=== PATIENT | female | born 1975 | race Caucasian/White ===

== ENCOUNTER 2017-08-28 10:19 | Inpatient (IN) | payer MEDICAID, OTHER ==
[2017-08-28] MEDS ORDERED: Acetaminophen 325 MG Tab PO PRN (10:47)
[2017-08-28] MEDS ORDERED: Acetaminophen 650 MG Supp RECTAL PRN (10:48)
[2017-08-28] MEDS ORDERED: Naloxone 0.4 MG/ML SDV IV PRN (10:49)
[2017-08-28] MEDS ORDERED: HYDROmorphone/Normal Saline 15 MG/30 ML PCA IV PRN (10:49)
[2017-08-28] MEDS: Dextrose 5%-Lactated Ringers 1,000 ML IV SCH ×2 (11:30→21:22)
[2017-08-28] MEDS: Pantoprazole 40 MG Vial IV SCH (12:00)
[2017-08-28] MEDS: Ciprofloxacin 500 MG Tab PO SCH ×2 (13:36→22:03)
[2017-08-28] MEDS: Ondansetron 4 MG/2 ML SDV IVPUSH PRN ×2 (14:26→20:51)
[2017-08-28] MEDS ORDERED: MVI, Adult with Vitamin K 10 ML, Thiamine 100 MG, Magnesium Sulfate 2 GM, Folic Acid 1 ... IV ONE ×5 (16:30)
[2017-08-29] MEDS: Ondansetron 4 MG/2 ML SDV IVPUSH PRN ×2 (02:18→10:40)
[2017-08-29] MEDS: Dextrose 5%-Lactated Ringers 1,000 ML IV SCH ×2 (03:57→10:40)
[2017-08-29] MEDS ORDERED: Meropenem 500 MG SDV ONE (06:42)
[2017-08-29] MEDS ORDERED: Bupivacaine 0.5%/EPINEPHrine 1:200,000 50 ML MDV ONE (06:42)
[2017-08-29] MEDS ORDERED: Scopolamine 1.5 MG Transdermal Patch TRDERM PRN (07:17)
--- NOTE | 2017-08-29 08:58 | PN ---
DATE OF SERVICE: 08/29/2017 SUBJECTIVE: Radha is n.p.o. She will be having surgery today. She remains to be nauseated. REVIEW OF SYSTEMS: Remainder of review of systems negative for any pertinent positives and negatives. OBJECTIVE: GENERAL: Radha is a pleasant 42-year-old female. VITAL SIGNS: TPR 95.6, 46, 16, and blood pressure 103/70. HEENT: Negative. NECK: Supple. HEART: Regular rate and rhythm. LUNGS: Clear. ABDOMEN: Tenderness remains in the upper abdomen. Left upper quadrant has the most pain. EXTREMITIES: Without peripheral edema. SCDs are on. ASSESSMENT: Partial small bowel obstruction. PLAN: 1. Rx scopolamine patch. Check and change every 72 hours. 2. Check EKG. 3. TSH and blood already drawn. 4. We will evaluate p.r.n. or in a.m. 5. Orders to be written postoperatively. Suzie Davis PA-C /[id number]
[2017-08-29] MEDS: Ciprofloxacin 500 MG Tab PO SCH (09:27)
[2017-08-29] MEDS: SCOPOLAMINE PATCH CHECK TOP SCH (09:27)
[2017-08-29] MEDS ORDERED: Dexamethasone 4 MG/ML SDV ONE (10:51)
[2017-08-29] MEDS ORDERED: Rocuronium 50 MG/5 ML Vial ONE (10:51)
[2017-08-29] MEDS ORDERED: Glycopyrrolate 0.2 MG/ML 5 ML MDV ONE (10:51)
[2017-08-29] MEDS ORDERED: Ondansetron 4 MG/2 ML SDV ONE (10:51)
[2017-08-29] MEDS ORDERED: fentaNYL 250 MCG/5 ML SDV ONE ×2 (10:51→15:22)
[2017-08-29] MEDS ORDERED: Neostigmine Methylsulfate 1 MG/ML 5 ML Syringe ONE (10:51)
[2017-08-29] MEDS ORDERED: Propofol 200 MG/20 ML SDV ONE (10:51)
[2017-08-29] MEDS ORDERED: Succinylcholine 200 MG/10 ML MDV ONE (10:51)
[2017-08-29] MEDS ORDERED: cefOXitin 2 GM in Sodium Chloride 0.9% 50 ML IV ONE (11:00)
[2017-08-29] MEDS ORDERED: Ketamine 500 MG/5 ML MDV IV SCH (11:00)
[2017-08-29] MEDS ORDERED: Ropivacaine 55 ML, Dexamethasone 8 MG, EPINEPHrine 0.4 MG, Sodium Chloride 0.9% 22.6 ML NERVRT SCH ×4 (11:00)
[2017-08-29] MEDS ORDERED: Lidocaine 0.4%/D5W 2 GM/500 ML BAG IV SCH (11:00)
[2017-08-29] MEDS ORDERED: Lidocaine 2% 100 MG/5 ML Syringe IVPUSH ONE (11:00)
[2017-08-29] MEDS: Pantoprazole 40 MG Vial IV SCH (13:50)
[2017-08-29] MEDS ORDERED: Ondansetron 4 MG/2 ML SDV IVPUSH ONE (16:43)
[2017-08-29] MEDS ORDERED: Ondansetron 4 MG/2 ML SDV IVPUSH PRN (16:44)
[2017-08-29] MEDS ORDERED: HYDROmorphone/Normal Saline 15 MG/30 ML PCA IV PRN (16:50)
[2017-08-29] MEDS ORDERED: hydrOXYzine HCl 100 MG/2 ML SDV IM ONE (16:56)
[2017-08-29] MEDS ORDERED: Dextrose 5%-Lactated Ringers 1,000 ML IV SCH (17:15)
[2017-08-29] MEDS ORDERED: MVI, Adult with Vitamin K 10 ML, Thiamine 100 MG, Chromium/Copper/Mang/Selen/Zn 1 ML in... IV SCH ×4 (18:00)
[2017-08-29] MEDS ORDERED: diphenhydrAMINE 50 MG/ML SDV IVPUSH PRN (18:00)
[2017-08-29] MEDS ORDERED: Labetalol 20 MG/4 ML Syringe IVPUSH PRN (18:00)
[2017-08-29] MEDS ORDERED: Metoclopramide 10 MG/2 ML SDV IVPUSH PRN (18:00)
[2017-08-29] MEDS ORDERED: hydrOXYzine HCl 100 MG/2 ML SDV IM PRN (18:00)
[2017-08-29] MEDS: Levothyroxine 100 MCG Tab PO SCH (18:14)
[2017-08-29] MEDS: Acetaminophen Soln 650 MG/20.3 ML UD Cup PO SCH (19:19)
[2017-08-29] MEDS: Heparin Sodium 5,000 Units/ML Vial SUBCUT SCH (19:20)
[2017-08-29] MEDS: cefOXitin 2 GM in Sodium Chloride 0.9% 50 ML IV SCH (19:24)
[2017-08-29] MEDS: Gabapentin 250 MG/5 ML Solution ML 470 ML Bottle PO SCH (20:57)
[2017-08-30] MEDS: Acetaminophen Soln 650 MG/20.3 ML UD Cup PO SCH ×5 (01:03→23:54)
[2017-08-30] MEDS: cefOXitin 2 GM in Sodium Chloride 0.9% 50 ML IV SCH ×2 (01:04→08:17)
[2017-08-30] MEDS ORDERED: Iohexol 647 MG/ML 50 ML SDV PO STA (04:04)
[2017-08-30] MEDS ORDERED: Ondansetron 4 MG Tab.DIS PO PRN (08:06)
[2017-08-30] MEDS: Celecoxib 200 MG Cap PO SCH (08:11)
[2017-08-30] MEDS: Levothyroxine 100 MCG Tab PO SCH (08:11)
[2017-08-30] MEDS: SCOPOLAMINE PATCH CHECK TOP SCH (08:12)
[2017-08-30] MEDS: Heparin Sodium 5,000 Units/ML Vial SUBCUT SCH ×2 (08:12→20:00)
[2017-08-30] MEDS ORDERED: Dextrose 5%-Lactated Ringers 1,000 ML IV SCH (08:15)
[2017-08-30] MEDS: Gabapentin 250 MG/5 ML Solution ML 470 ML Bottle PO SCH ×3 (08:15→21:43)
--- NOTE | 2017-08-30 10:27 | CR ---
UGI wo KUB HISTORY: eval R -Y GBP FINDINGS: After administration of oral contrast, upright views were obtained. Post operative changes gastric bypass. Surgical drains in place. No evidence for leak. Contrast passes freely into proximal small bowel loops. There are some redundant loops horizontally in the left upper quadrant. There is s ome mild small bowel distention which is likely ileus. IMPRESSION: No evidence for leak or obstruction.
[2017-08-30] MEDS: HYDROmorphone 2 MG Tab PO PRN ×3 (11:29→21:43)
[2017-08-30] MEDS: Pantoprazole 40 MG Delayed-Release Granules 1 Packet PO SCH (13:46)
--- NOTE | 2017-08-30 14:27 | PCM.PN ---
- General Info Date of Service: 08/30/17 Admission Dx/Problem (Free Text): Partial SBO Subjective Update: Patient is doing okay, she is extremely exhausted. She slept through the night. She is up and ambulating and is not experiencing pain or nausea. Functional Status: Reports: Pain Controlled, Tolerating Diet, Ambulating, Urinating, Incentive Spirometry - Review of Systems General: Reports: No Symptoms HEENT: Reports: No Symptoms Pulmonary: Reports: No Symptoms Cardiovascular: Reports: No Symptoms Gastrointestinal: Reports: No Symptoms Genitourinary: Reports: No Symptoms Musculoskeletal: Reports: No Symptoms Skin: Reports: No Symptoms Neurological: Reports: No Symptoms Psychiatric: Reports: No Symptoms Systems Review Comment:: Remainder of ROS is negative for any pertinent negatives and positives. - Patient Data Vitals - Most Recent: Last Vital Signs Temp 97.8 F 08/30/17 11:32 Pulse 41 L 08/30/17 11:32 Resp 16 08/30/17 11:32 BP 113/69 08/30/17 11:32 Pulse Ox 95 08/30/17 11:32 Weight - Most Recent: 241 lb 4.8 oz I&O - Last 24 Hours: Intake & Output 08/29/17 08/30/17 08/30/17 22:59 06:59 14:59 Intake Total 651 1228 1490 Output Total 900 200 300 Balance -249 1028 1190 Med Orders - Current: Current Medications Acetaminophen (Tylenol) 650 mg PO Q6H [facility] Last Admin: 08/30/17 11:29 Dose: 650 mg Celecoxib (Celebrex) 200 mg PO DAILY@0800 [facility] Last Admin: 08/30/17 08:11 Dose: 200 mg Cyanocobalamin (Vitamin B12) 1,000 mcg IM ONETIME ONE Stop: 08/31/17 09:01 Gabapentin (Neurontin) 300 mg PO TID [facility] Last Admin: 08/30/17 13:45 Dose: 300 mg Heparin Sodium (Porcine) (Heparin Sodium) 5,000 units SUBCUT Q12H [facility] Last Admin: 08/30/17 08:12 Dose: 5,000 units Hydromorphone HCl (Dilaudid) 2 - 4 mg PO Q4H PRN PRN Reason: Pain Last Admin: 08/30/17 11:29 Dose: 2 mg Hydroxyzine HCl (Vistaril) 75 - 100 mg IM Q4H PRN PRN Reason: pain Levothyroxine Sodium (Synthroid) 200 mcg PO ACBREAKFAST [facility] Last Admin: 08/30/17 08:11 Dose: 200 mcg Miscellaneous Information (Remove Patch) 1 ea TRDERM ONETIME ONE Stop: 08/31/17 10:01 Scopolamine Patch (Check) 1 each TOP DAILY [facility] Stop: 08/31/17 09:01 Last Admin: 08/30/17 08:12 Dose: Not Given Ondansetron HCl (Zofran Odt) 4 mg PO Q4H PRN PRN Reason: Nausea/Vomiting Pantoprazole Sodium (Protonix Granules) 40 mg PO Q24H [facility] Last Admin: 08/30/17 13:46 Dose: 40 mg Scopolamine (Transderm-Scop) 1.5 mg TRDERM Q72H PRN PRN Reason: Nausea Stop: 08/31/17 10:00 Last Admin: 08/29/17 09:25 Dose: 1.5 mg Discontinued Medications Acetaminophen (Tylenol) 325 mg PO Q4H PRN PRN Reason: FEVER/ANALGESIA Acetaminophen (Tylenol) 650 mg RECTAL Q4H PRN PRN Reason: FEVER/ANALGESIA Bupivacaine HCl/Epinephrine Bitart (Marcaine 0.5%/Epinephrine 1:200,000) Confirm Administered Dose 50 ml .ROUTE .STK-MED ONE Stop: 08/29/17 06:43 Last Admin: 08/29/17 16:13 Dose: 25 ml Ciprofloxacin (Ciprofloxacin Hcl) 500 mg PO BID [facility] Last Admin: 08/29/17 09:27 Dose: Not Given Ropivacaine 55 ml/Dexamethasone 8 mg/Epinephrine HCl 0.4 mg/ Sodium Chloride 22.6 ml 0 ml NERVRT ASDIRECTED [facility] Last Admin: 08/29/17 15:13 Dose: 80 syringe Dexamethasone (Dexamethasone) Confirm Administered Dose 4 mg .ROUTE .STK-MED ONE Stop: 08/29/17 10:52 Diphenhydramine HCl (Benadryl) 25 - 50 mg IVPUSH Q4H PRN PRN Reason: ITCHING Fentanyl (Sublimaze) Confirm Administered Dose 250 mcg .ROUTE .STK-MED ONE Stop: 08/29/17 10:52 Fentanyl (Sublimaze) Confirm Administered Dose 250 mcg .ROUTE .STK-MED ONE Stop: 08/29/17 15:23 Glycopyrrolate (Robinul) Confirm Administered Dose 1 mg .ROUTE .STK-MED ONE Stop: 08/29/17 10:52 Hydromorphone HCl (Dilaudid Programming Manager 15 Mg In Ns 30 Ml) 0 mg IV ASDIRECTED PRN; Protocol PRN Reason: CLAY DIGGER PAIN CONTROL Last Admin: 08/28/17 11:06 Dose: 15 mg Hydromorphone HCl (Dilaudid Programming Manager 15 Mg In Ns 30 Ml) 0 mg IV ASDIRECTED PRN; Protocol PRN Reason: Pain Hydroxyzine HCl (Vistaril) 100 mg IM ONETIME ONE Stop: 08/29/17 16:57 Last Admin: 08/29/17 17:01 Dose: 100 mg Dextrose/Lactated Ringer's (Dextrose 5%-Lactated Ringers) 1,000 mls @ 150 mls/ hr IV ASDIRECTED [facility] Last Admin: 08/29/17 10:40 Dose: 150 mls/hr Cefoxitin Sodium 2 gm/ Sodium (Chloride) 50 mls @ 100 mls/hr IV ONETIME ONE Stop: 08/29/17 11:29 Last Admin: 08/29/17 14:26 Dose: 100 mls/hr Lidocaine HCl/Dextrose (Lidocaine 2 Gm/D5w 500 Ml) 2 gm in 500 mls @ 30 mls/hr IV .[id number] [facility] Stop: 08/30/17 03:39 Last Admin: 08/29/17 18:15 Dose: 2 mg/min, 30 mls/hr Ketamine HCl 100 mg/ Sodium (Chloride) 100 mls @ 32.83 mls/hr IV ASDIRECTED [facility] Multivitamins/Minerals 10 ml/Thiamine HCl 100 mg/ Magnesium Sulfate 2 gm/ Folic Acid 1 mg / Lactated Ringer's 1,015.2 mls @ 200 mls/hr IV ONETIME ONE Stop: 08/28/17 21:34 Last Admin: 08/28/17 16:19 Dose: 200 mls/hr Dextrose/Lactated Ringer's (Dextrose 5%-Lactated Ringers) 1,000 mls @ 175 mls/ hr IV ASDIRECTED [facility] Last Admin: 08/30/17 01:04 Dose: 175 mls/hr Multivitamins/Minerals 10 ml/Thiamine HCl 100 mg/ Chromium/Copper/Manganese/ Seleni/Zn 1 ml/ Dextrose/Lactated Ringer's 1,012 mls @ 175 mls/hr IV DAILY@ 1600 [facility] Last Admin: 08/29/17 20:09 Dose: 175 mls/hr Cefoxitin Sodium 2 gm/ Sodium (Chloride) 50 mls @ 100 mls/hr IV Q6H [facility] Stop: 08/30/17 14:29 Last Admin: 08/30/17 08:17 Dose: 100 mls/hr Dextrose/Lactated Ringer's (Dextrose 5%-Lactated Ringers) 1,000 mls @ 100 mls/ hr IV ASDIRECTED [facility] Iohexol (Omnipaque-300) 50 ml PO .ASDIRECTED [facility] Stop: 08/30/17 04:05 Last Admin: 08/30/17 04:19 Dose: 50 ml Ketamine HCl (Ketalar) 26 mg IV ASDIRECTED [facility] Labetalol HCl (Normodyne) 5 - 15 mg IVPUSH Q1H PRN PRN Reason: SBP over 160 OR DBP over 95 Lidocaine HCl (Xylocaine 2%) 110 mg IVPUSH ONETIME ONE Stop: 08/29/17 11:01 Last Admin: 08/29/17 18:15 Dose: Not Given Meropenem (Merrem) Confirm Administered Dose 500 mg .ROUTE .STK-MED ONE Stop: 08/29/17 06:43 Last Admin: 08/29/17 15:22 Dose: 500 mg Metoclopramide HCl (Reglan) 10 mg IVPUSH Q6H PRN PRN Reason: NAUSEA NOT CONTROL BY ZOFRAN Naloxone HCl (Narcan) 0.1 mg IV ASDIRECTED PRN PRN Reason: decreased respiratory rate Neostigmine Methylsulfate (Neostigmine) Confirm Administered Dose 5 mg .ROUTE .STK-MED ONE Stop: 08/29/17 10:52 Ondansetron HCl (Zofran) 4 mg IVPUSH Q4H PRN PRN Reason: NAUSEA Last Admin: 08/29/17 10:40 Dose: 4 mg Ondansetron HCl (Zofran) Confirm Administered Dose 4 mg .ROUTE .STK-MED ONE Stop: 08/29/17 10:52 Ondansetron HCl (Zofran) 4 mg IVPUSH ONETIME ONE Stop: 08/29/17 16:44 Last Admin: 08/29/17 16:59 Dose: 4 mg Ondansetron HCl (Zofran) 4 mg IVPUSH Q4H PRN PRN Reason: NAUSEA Pantoprazole Sodium (Protonix Iv) 40 mg IV Q24H [facility] Last Admin: 08/29/17 13:50 Dose: 40 mg Propofol (Diprivan 20 Ml) Confirm Administered Dose 200 mg .ROUTE .STK-MED ONE Stop: 08/29/17 10:52 Rocuronium [place] (Zemuron) Confirm Administered Dose 50 mg .ROUTE .STK-MED ONE Stop: 08/29/17 10:52 Succinylcholine Chloride (Quelicin) Confirm Administered Dose 200 mg .ROUTE .STK -MED ONE Stop: 08/29/17 10:52 - Exam General: Alert, Oriented HEENT: Pupils Equal, Mucous Membr. Moist/[place] Neck: Supple Lungs: Clear to Auscultation, Normal Respiratory Effort Cardiovascular: Regular Rate, Regular Rhythm Extremities: Normal Range of Motion Skin: Warm, Dry, Intact Wound/Incisions: Healing Well Neurological: No New Focal Deficit Psy/Mental Status: Alert, Normal Affect, Normal Mood - Problem List Review Problem List Initiated/Reviewed/Updated: Yes - Assessment Assessment:: Status post small bowel resection. - Plan Plan:: 1. May Shower 2. Full liquid diet 3. Dextrose 5% Lactated Ringers 4. Hydromorhpone 2-4 PO Q4H prn for pain 5. Odansetron 4mg PO Q4h prn for nausea 6.Conver to Saline Lock Routine 7. Revaluate prn or in am
[2017-08-30] MEDS ORDERED: Levothyroxine 100 MCG Tab PO ONE (16:00)
[2017-08-31] MEDS: Acetaminophen Soln 650 MG/20.3 ML UD Cup PO SCH ×2 (06:28→11:11)
[2017-08-31] MEDS: HYDROmorphone 2 MG Tab PO PRN ×2 (06:30→16:17)
[2017-08-31] MEDS ORDERED: Levothyroxine 100 MCG Tab PO SCH (07:30)
[2017-08-31] MEDS: Celecoxib 200 MG Cap PO SCH (08:20)
[2017-08-31] MEDS: SCOPOLAMINE PATCH CHECK TOP SCH (08:21)
[2017-08-31] MEDS: Heparin Sodium 5,000 Units/ML Vial SUBCUT SCH (08:21)
[2017-08-31] MEDS: Gabapentin 250 MG/5 ML Solution ML 470 ML Bottle PO SCH ×2 (08:46→13:48)
[2017-08-31] MEDS ORDERED: Cyanocobalamin (Vitamin B12) 1,000 MCG/ML SDV IM ONE (09:00)
[2017-08-31] MEDS ORDERED: Magnesium Hydroxide 400 MG/5 ML Susp 30 ML Cup PO SCH (10:00)
[2017-08-31] MEDS ORDERED: Bisacodyl 5 MG Tab PO SCH (10:00)
[2017-08-31] MEDS: Pantoprazole 40 MG Delayed-Release Granules 1 Packet PO SCH (11:11)
[2017-08-31 14:37] VITALS: BP 126/78
--- NOTE | 2017-09-01 10:09 | PN ---
DATE OF SERVICE: 08/31/2017 The patient has been afebrile with stable vital signs. Complaining of some gas-type pains this morning. We will give her some milk of magnesia and Dulcolax oral tablets scheduled until bowels are moving. Otherwise, oral intake has been satisfactory. She will be getting shower. Pain control in general appears to be reasonably good. We did check a TSH and it was suddenly 2. She states that for a period of time prior to coming to the hospital, she was not taking much of her Synthroid. So, we will keep the present dose going, and she would likely be rechecked again in perhaps a month to make sure that it is coming down. As she may be ready for discharge home tomorrow if she is able to get the GI tract fully functional. Duong Kolb MD /[id number]
--- NOTE | 2017-09-02 09:21 | DISCH ---
FINAL DIAGNOSES: Partial small bowel obstruction at the junction of the Mine limb with: 1. Jejunojejunostomy. 2. 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 SECONDARY DIAGNOSES: 1. Bariatric surgery status. 2. Hypothyroidism, treated. 3. Chronic back pain. OPERATIVE PROCEDURE: Exploratory laparotomy with lysis of adhesions and: 1. Revision of jejunojejunostomy component of Mine-en-Y gastric bypass. 2. Separate small-bowel resection, removing the elongated biliopancreatic limb stump. This was done on 08/29/2017. SUMMARY: This is a 42-year-old status post previous Mine-en-Y gastric bypass, presenting with partial small-bowel type symptoms. The patient underwent a limited open laparotomy on 08/29/2017 and was found to have a tightly angulated Mine limb as it joined the jejunojejunostomy. This was compounded by a biliopancreatic limb which is fairly elongated and with its mesenteric attachments distorting that anastomosis posteriorly and towards the left of biliopancreatic limb stump was resected, which freed up that anastomosis. The Mine limb was then divided flush with the jejunojejunostomy, and a new jejunojejunostomy was then created somewhat more distally, thus revising the anatomy such that some additional weight loss would be likely. Postoperatively, no major problems were noted. At the time of discharge, she was tolerating a step 3 diet, i.e. a soft solid diet, and we will be restarting her usual medications plus Dilaudid 2 to 4 mg p.o. q.4 hours p.r.n. pain, #40. She will be following up with Suzie Davis at [facility] on September 10. Prior to admission, the patient was noted to have a UTI with E. coli and was on Cipro and will be instructed to finish off that antibiotic course following discharge.
--- NOTE | 2017-09-03 12:50 | OR ---
DATE OF PROCEDURE: 08/29/2017 PREOPERATIVE DIAGNOSIS: Partial small bowel obstruction. POSTOPERATIVE DIAGNOSES: 1. Partial small bowel obstruction at the junction of the Mine limb with jejunojejunostomy. 2. Elongated biliary pancreatic limb stump causing distortion of the small bowel orientation. OPERATIVE PROCEDURE: Exploratory laparotomy with lysis of adhesions; 1. Revision of the jejunojejunostomy, Mien-en-Y gastric bypass (35047). 2. Separate resection of small bowel biliopancreatic limb stump (79397). ANESTHESIA: General. ASSISTANTS: Suzie Davis PA-C, and PAS. Rossy INDICATION FOR PROCEDURE: This is a 42-year-old status post previous Mine-en-Y gastric bypass, presenting with CT findings suggestive of partial small bowel obstruction. Plan is to proceed with an open laparotomy as a degree of small-bowel distention on a CT scan such that the trocar placement might put the patient at significant risk for bowel injury and a large amount of spill of distal contents. The plan will be to proceed with a laparotomy as noted above with identification of problems with lysis of adhesions, resection of bowel, possible revision of jejunojejunostomy with a Mine-en-Y gastric bypass, were all reviewed, and the patient wishes to proceed. DETAILS OF PROCEDURE: The patient was taken to the operating room and placed in a supine position. After general endotracheal anesthesia was induced, a Hernández catheter was inserted (this was removed at the end of the procedure), and the abdomen was prepped and draped. A midline incision from the umbilicus roughly a handsbreadth toward the xiphoid was made and carried down through the skin and subcutaneous tissue and peritoneal cavity. Upon entering the peritoneal cavity, bilateral subcostal transverse plane blocks were placed with injection of the needle just underneath the peritoneum on each side and injection of a standard solution bilaterally. The abdomen was then inspected. At this point, the 2 areas appeared to be problematic, one was where the small bowel entered the jejunojejunostomy, this appeared to be quite stenotic, and after lysis of adhesions, there it was quite narrowed. This appeared to be the primary source of the preoperative bowel obstruction. After that had been freed up, it was also noted that the patient had a quite elongated biliopancreatic limb stump. The mesenteric attachments of this were then causing that to be pulled posteriorly and leftward causing a significant distortion of the course of the small bowel at that level initially. Then, the mesentery of the elongated of the biliopancreatic limb stump was divided with a WALDO mesenteric load and that section of the bowel divided more or less flushed with the jejunojejunostomy with a WALDO oakes load. The stricture at the Mine limb junction with the jejunojejunostomy appeared to be more fixed. Given this, the small bowel was divided at that level, and the jejunojejunostomy then revised somewhat more distally. The latter would be also helpful in terms of the patient losing some increased weight at that level. Then, the [id number] enteroenterostomy was accomplished with internal firing of the Endo-WALDO 60 mm stapler followed by 45 mm internal firing of the common opening closed transversely with the WALDO stapler. The anastomosis was reinforced with 3-0 Vicryl stitch, and the mesentery was then closed with a 2-0 silk stitch providing some more permanency. The final limb length were as follows; the Mine limb was at 140 cm, biliopancreatic limb 400 cm, and the common limb at 210 cm. At that point, no further problems noted. The abdomen was irrigated with antibiotic-containing saline solution. The midline fascia was approximated with #2 Vicryl stitch. This fascia was also anesthetized with 0.5% Marcaine with epinephrine, and the incision then closed with 2 layers of 3-0 Vicryl stitch deep and mary for the skin. Dressing was applied. The patient was taken to the recovery room in satisfactory condition. Physician project construction assistant manager, Suzie Davis, played an essential role in assisting in this case, helping to position the patient, retract structures as needed as well as suturing and cutting sutures as indicated. Her presence improved the patient's safety and decreased the operative time. Duong Kolb MD /[id number]
== END 2017-08-31 16:30 | disposition home or self-care (01) | DRG 336 ==
LOC: JP.2SS 10:19
PROVIDERS: ADMIT Surgery; ATTEND Surgery
PROC: 0DB90ZX Excision of Duodenum, Open Approach, Diagnostic (ICD-10-PCS; principal; 2017-08-29)
PROC: 0DNA0ZZ Release Jejunum, Open Approach (ICD-10-PCS; 2017-08-29)
PROC: 0DBA0ZX Excision of Jejunum, Open Approach, Diagnostic (ICD-10-PCS; 2017-08-29)
PROC: 0DNW0ZZ Release Peritoneum, Open Approach (ICD-10-PCS; 2017-08-29)
PROC: 3E0T3BZ Introduction of Anesthetic Agent into Peripheral Nerves and Plexi, Percutaneous Approach (ICD-10-PCS; 2017-08-29)
DX: K56.690 Other partial intestinal obstruction (principal); K90.49 Malabsorption due to intolerance, not elsewhere classified; N39.0 Urinary tract infection, site not specified; D50.9 Iron deficiency anemia, unspecified; E53.9 Vitamin B deficiency, unspecified; E03.9 Hypothyroidism, unspecified; G89.29 Other chronic pain; M54.9 Dorsalgia, unspecified; Z98.84 Bariatric surgery status; B96.20 Unspecified Escherichia coli [E. coli] as the cause of diseases classified elsewhere; Z79.899 Other long term (current) drug therapy; K56.51 Intestinal adhesions [bands], with partial obstruction
CPT/HCPCS: 36415; 74240; 74240-26; 80053; 81025; 82306; 82607; 82728; 82746; 83735; 84100; 84425; 84443; 85027; 88305; 88307; 93005; 94762; A9270-GY; C9113; J0171; J0330; J0694; J1100; J1170; J1644; J2001; J2185; J2405; J2704; J2710; J2795; J3010; J3410; J3411; J3420; J3475; J3490; J7030; J7042; J7050; J7120; Q9967

== ENCOUNTER 2018-07-10 07:16 | Inpatient (IN) | payer OTHER ==
[~2018-07-10 07:16] MED LIST: Acetaminophen 500 MG Tab PO ONE; Bupivacaine 0.5%/EPINEPHrine 1:200,000 50 ML MDV ONE; Meropenem 500 MG SDV ONE; Scopolamine 1.5 MG Transdermal Patch TRDERM SCH
[2018-07-10] MEDS ORDERED: Dextrose 5%-Lactated Ringers 1,000 ML IV SCH (07:45)
[2018-07-10] MEDS ORDERED: Ropivacaine 46 ML, Dexamethasone 8 MG, EPINEPHrine 0.4 MG, Sodium Chloride 0.9% 31.6 ML NERVRT SCH ×4 (08:45)
[2018-07-10] MEDS ORDERED: Ketamine 500 MG/5 ML MDV IV SCH (08:45)
[2018-07-10] MEDS ORDERED: Ketamine 50 MG in Sodium Chloride 0.9% 49.5 ML IV SCH (08:45)
[2018-07-10] MEDS ORDERED: Neostigmine Methylsulfate 1 MG/ML 5 ML Syringe ONE (08:56)
[2018-07-10] MEDS ORDERED: fentaNYL 250 MCG/5 ML SDV ONE (08:56)
[2018-07-10] MEDS ORDERED: Dexamethasone 4 MG/ML SDV ONE (08:56)
[2018-07-10] MEDS ORDERED: Ondansetron 4 MG/2 ML SDV ONE (08:56)
[2018-07-10] MEDS ORDERED: Glycopyrrolate 0.2 MG/ML 5 ML MDV ONE (08:56)
[2018-07-10] MEDS ORDERED: Propofol 200 MG/20 ML SDV ONE (08:56)
[2018-07-10] MEDS ORDERED: Rocuronium 50 MG/5 ML Vial ONE (08:56)
[2018-07-10] MEDS ORDERED: HYDROmorphone/Normal Saline 15 MG/30 ML PCA IV PRN (10:08)
[2018-07-10] MEDS ORDERED: Naloxone 0.4 MG/ML SDV IVPUSH PRN (10:08)
[2018-07-10] MEDS: ceFAZolin 2 GM in Premix Bag 1 BAG IV ONE ×2 (10:12→12:51)
[2018-07-10] MEDS ORDERED: fentaNYL 100 MCG/2 ML SDV ONE ×3 (11:01→11:32)
[2018-07-10] MEDS ORDERED: hydrOXYzine HCl 100 MG/2 ML SDV IM ONE (12:17)
[2018-07-10] MEDS ORDERED: fentaNYL 100 MCG/2 ML SDV IVPUSH ONE (12:24)
[2018-07-10] MEDS ORDERED: hydrOXYzine HCl 100 MG/2 ML SDV IM PRN (13:26)
[2018-07-10] MEDS: Dextrose 5%-Lactated Ringers 1,000 ML IV SCH ×2 (13:35→19:39)
[2018-07-10] MEDS: Cyclobenzaprine 10 MG Tab PO PRN ×2 (13:39→22:34)
[2018-07-10] MEDS: SCOPOLAMINE PATCH CHECK TOP SCH (13:49)
[2018-07-10] MEDS: Acetaminophen 500 MG Tab PO SCH ×2 (15:23→19:25)
[2018-07-10] MEDS: Magnesium Sulfate/Water 2 GM in Premix Bag 1 BAG IV SCH ×2 (15:26→22:27)
[2018-07-10] MEDS: ceFAZolin 2 GM in Premix Bag 1 BAG IV SCH (18:30)
[2018-07-11] MEDS: Dextrose 5%-Lactated Ringers 1,000 ML IV SCH (01:39)
[2018-07-11] MEDS: ceFAZolin 2 GM in Premix Bag 1 BAG IV SCH ×3 (02:20→17:42)
[2018-07-11] MEDS: Acetaminophen 500 MG Tab PO SCH ×4 (02:22→20:34)
[2018-07-11] MEDS: Magnesium Sulfate/Water 2 GM in Premix Bag 1 BAG IV SCH ×4 (05:21→22:09)
[2018-07-11] MEDS ORDERED: Levothyroxine 25 MCG Tab PO SCH (07:30)
[2018-07-11] MEDS: Celecoxib 200 MG Cap PO SCH (07:40)
[2018-07-11] MEDS: Levothyroxine 100 MCG Tab PO SCH (07:41)
[2018-07-11] MEDS ORDERED: Dextrose 5%-Lactated Ringers 1,000 ML IV SCH (07:48)
[2018-07-11] MEDS ORDERED: Ondansetron 4 MG Tab.DIS PO PRN (07:50)
[2018-07-11] MEDS: SCOPOLAMINE PATCH CHECK TOP SCH (08:56)
[2018-07-11] MEDS: Cyclobenzaprine 10 MG Tab PO PRN ×2 (08:56→15:31)
[2018-07-11] MEDS ORDERED: Sennosides 8.6 MG Tab PO SCH (09:00)
[2018-07-11] MEDS ORDERED: Sodium Ferric Gluconate Cmplex 250 MG in Sodium Chloride 0.9% 100 ML IV SCH (09:00)
--- NOTE | 2018-07-11 11:00 | PN ---
DATE OF SERVICE: 07/11/2018 SUBJECTIVE: Radha is postoperative day #1. She has been up ambulating 4 times, using her AUDIO DIRECTOR. Hernández catheter is in place. Oral intake 780. Urinary output is 1265. REVIEW OF SYSTEMS: Remainder of review of systems negative for any pertinent positives and negatives. OBJECTIVE: GENERAL: Radha iRco is a pleasant 43-year-old female. She is alert, orientated, sitting up in the chair. VITAL SIGNS: TPR is 98.3, 49, 18, blood pressure is 118/71. HEENT: Negative. NECK: Supple. HEART: Regular rate and rhythm. LUNGS: Clear. ABDOMEN: Dressings dry and intact. Abdominal binder is on. EXTREMITIES: Without peripheral edema. ASSESSMENT: Open repair of recurrent incarcerated incisional hernia with mesh, placement of Vicryl mesh for recurrent incarcerated incisional hernia and extensive intraabdominal adhesions. Date of surgery 07/10/2018. Surgeon, Duong Kolb MD. PLAN: 1. Decrease IV to 100 mL per hour. 2. Discontinue Hernández catheter. 3. Step 3 gastric bypass diet. 4. Dressing off, may shower. 5. Increase Synthroid to 225 mcg daily. 6. Home medications were restarted and senna 8.6 mg p.o. daily. 7. We will evaluate p.r.n. or in a.m. Suzie Davis PA-C /[id number]
[2018-07-11] MEDS ORDERED: Simethicone 80 MG Tab.Chew PO PRN (13:05)
[2018-07-11] MEDS: Bisacodyl 10 MG Supp RECTAL PRN ×2 (13:23→20:52)
[2018-07-11] MEDS: Ondansetron 4 MG/2 ML SDV IVPUSH PRN ×2 (14:12→20:51)
[2018-07-11] MEDS: HYDROmorphone 2 MG Tab PO PRN ×2 (17:34→23:45)
[2018-07-12] MEDS: ceFAZolin 2 GM in Premix Bag 1 BAG IV SCH (01:43)
[2018-07-12] MEDS: Acetaminophen 500 MG Tab PO SCH ×2 (01:43→07:40)
[2018-07-12] MEDS: Cyclobenzaprine 10 MG Tab PO PRN ×2 (01:43→07:33)
[2018-07-12] MEDS: Magnesium Sulfate/Water 2 GM in Premix Bag 1 BAG IV SCH (03:24)
[2018-07-12] MEDS: HYDROmorphone 2 MG Tab PO PRN (05:03)
[2018-07-12] MEDS ORDERED: Levothyroxine 100 MCG Tab PO SCH (07:30)
[2018-07-12] MEDS: Celecoxib 200 MG Cap PO SCH (07:38)
[2018-07-12] MEDS: Levothyroxine 100 MCG Tab PO SCH (07:39)
[2018-07-12 07:40] VITALS: BP 102/54
--- NOTE | 2018-07-14 14:46 | DISCH ---
FINAL DIAGNOSES: 1. Recurrent incarcerated incisional hernia. 2. Extensive intraabdominal adhesions. 3. History of gastric bypass surgery. 4. History of hypothyroidism. OPERATIVE PROCEDURE: This was done on 07/10/2018, open repair of recurrent incarcerated incisional hernia along with repair of incarcerated umbilical hernia with mesh and placement of Vicryl mesh to limit recurrent adhesion formation. SUMMARY: This is a 43-year-old presenting with recurrent incisional hernia, which appeared to be fairly broad-based, and at the time of admission, the patient underwent the exploratory laparotomy. She had quite a bit in the way of adhesions, which were taken down, and quite large broad-based recurrent incisional hernia was repaired, along with smaller umbilical hernia, which was done with mesh. Postoperatively, she did well in terms of pain control, considering the tightness of the repair, and is presently tolerating diet and has moved her bowels and plan will be to discharge home at this time. She will be instructed not to lift, push or pull more than 10 pounds for 8 weeks postoperatively. Otherwise, begin regular diet. She should be on her usual medications plus Dilaudid 2 to 4 mg p.o. q.4 hours p.r.n. pain plus Tylenol as needed. Followup will be with Suzie Davis, at [facility] in [place] on 07/22/2018 at 11:00 a.m.
--- NOTE | 2018-07-15 07:48 | OR ---
DATE OF PROCEDURE: 07/10/2018 PREOPERATIVE DIAGNOSIS: Recurrent incisional hernia. POSTOPERATIVE DIAGNOSES: 1. Recurrent incarcerated incisional hernia. 2. Incarcerated umbilical hernia. 3. Extensive intraabdominal adhesions. OPERATIVE PROCEDURES: Exploratory laparotomy with: 1. Repair of recurrent incarcerated incisional hernia with mesh (99068, 68650). 2. Repair of incarcerated umbilical hernia with mesh (08686). 3. Placement of Vicryl mesh to displace pelvic and abdominal wall from underlying viscera to limit recurrent adhesion formation (61433). ANESTHESIA: General. REGISTRATION REP: Suzie Davis PA-C INDICATIONS FOR PROCEDURE: This is a 43-year-old presenting with a broad-based recurrent incisional hernia located from the umbilicus upward (with open repair of recurrent hernia with mesh). Potential risks including bleeding, infection, injury to underlying viscera, problems with recurrence of the mesh becoming infected over time, as well as possibility of cardiopulmonary, septic, or hemorrhagic complications leading to were discussed, and the patient wishes to proceed. DETAILS OF PROCEDURE: The patient was taken to the operating room, and after general endotracheal anesthesia was induced, a Hernández catheter was inserted, and the abdomen prepped and draped. Upper midline incision from just above the umbilicus to roughly 3 fingers below the xiphoid was made and carried down through the full thickness of the abdominal wall and entering the peritoneal cavity through the hernia sac. The patient was noted to have quite extensive adhesions. Some of these involved some of the large and small bowel, these were taken down without incident, and the remaining attachments were to the omentum. The hernia sac was then dissected free circumferentially down to the level of the fascia. The patient was also noted to have a separate umbilical hernia which had some incarcerated omentum within it as well. This was reduced as well with division of the incarcerated component away from the peritoneal sac. Once these were in place, and there was a good clearance of the fascia in all directions, a Ventrio ST hernia patch measuring 19.5 cm x 25.6 cm was selected. This was then lined on its polypropylene side on its circumference at roughly 5 cm intervals with 2-0 Vicryl sutures to allow pulling of the fascia up in an area well away from the fascial edges. This was soaked in antibiotic-containing saline solution. Small stab wounds were then placed where the suture would be pulled up through the abdominal wall. The upper half of the sutures were then initially placed, and the mesh then pulled into an intraabdominal location. The Vicryl mesh was then placed underneath the new mesh, as well as extending down into the pelvic area to limit recurrent adhesion formation between the abdominopelvic sidewalls and the underlying viscera. Once this was in place, the remaining sutures were pulled up through the abdominal wall. The sutures were then all tied into the underlying shelf of the mesh and circumferentially additionally affixed with titanium tacking screws to the abdominal wall. At that point, no further problems were noted. The area was irrigated, as it had been earlier, with a combination of meropenem and Zyvox antibiotic solution. At that point, the fascial closure over this was accomplished with a running #2 Vicryl stitch. This was quite tight. Prior to this closure, bilateral transversus abdominis plane blocks were placed to aid in postoperative pain control, and once this was completed, in terms of closure, the subcutaneous tissue was approximated with 2 layers of 3-0 and 4-0 Vicryl stitch deep and mary for the skin. Dressing was applied. The patient was taken to the recovery room in satisfactory condition. There were no evident complications. Physician assistant paralegal, Suzie Davis, played an essential role in assisting in this case, helping to position the patient, retract structures as needed, suturing, and mary when indicated. Her presence improved patient safety and decreased operative time. Duong Kolb MD /[id number]
== END 2018-07-12 09:30 | disposition home or self-care (01) | DRG 336 ==
LOC: JP.SDS 07:16 → JP.SDSSCHI 07:16 → EDSTATUS 10:00 → JP.MS 12:00
PROVIDERS: ADMIT Surgery; ATTEND Surgery
PROC: 0WUF0JZ Supplement Abdominal Wall with Synthetic Substitute, Open Approach (ICD-10-PCS; principal; 2018-07-10)
PROC: 0WUF0JZ Supplement Abdominal Wall with Synthetic Substitute, Open Approach (ICD-10-PCS; 2018-07-10)
PROC: 3E0M05Z Introduction of Adhesion Barrier into Peritoneal Cavity, Open Approach (ICD-10-PCS; 2018-07-10)
PROC: 0DNU0ZZ Release Omentum, Open Approach (ICD-10-PCS; 2018-07-10)
PROC: 0DN80ZZ Release Small Intestine, Open Approach (ICD-10-PCS; 2018-07-10)
PROC: 0DNE0ZZ Release Large Intestine, Open Approach (ICD-10-PCS; 2018-07-10)
DX: K43.0 Incisional hernia with obstruction, without gangrene (principal); K91.2 Postsurgical malabsorption, not elsewhere classified; K66.0 Peritoneal adhesions (postprocedural) (postinfection); E03.9 Hypothyroidism, unspecified; K42.0 Umbilical hernia with obstruction, without gangrene; K21.9 Gastro-esophageal reflux disease without esophagitis; E53.8 Deficiency of other specified B group vitamins; M54.5 Low back pain; D50.9 Iron deficiency anemia, unspecified; E61.0 Copper deficiency; E50.9 Vitamin A deficiency, unspecified; E60 Dietary zinc deficiency; Z90.49 Acquired absence of other specified parts of digestive tract; Z79.899 Other long term (current) drug therapy; Z79.890 Hormone replacement therapy; Z97.5 Presence of (intrauterine) contraceptive device; Z98.84 Bariatric surgery status; Z88.8 Allergy status to other drugs, medicaments and biological substances
CPT/HCPCS: 36415; 81025; 84443; 88302; 94762; A9270-GY; C1781; J0171; J0690; J1100; J1170; J2020; J2185; J2405; J2704; J2710; J2795; J2916; J3010; J3410; J3475; J3490; J7030; J7042; J7050

== ENCOUNTER 2018-11-13 08:30 | Inpatient (IN) | payer OTHER ==
[~2018-11-13 08:30] MED LIST changes: -Acetaminophen 500 MG Tab PO ONE; -Bupivacaine 0.5%/EPINEPHrine 1:200,000 50 ML MDV ONE; +Ketamine 50 MG in Sodium Chloride 0.9% 49.5 ML IV SCH; +Ketamine 500 MG/5 ML MDV IV SCH; +Lidocaine 2% 100 MG/5 ML Syringe IVPUSH SCH; -Scopolamine 1.5 MG Transdermal Patch TRDERM SCH
[2018-11-13] MEDS ORDERED: Acetaminophen 500 MG Tab PO ONE (09:15)
[2018-11-13] MEDS ORDERED: Scopolamine 1.5 MG Transdermal Patch TOP ONE (09:15)
[2018-11-13] MEDS ORDERED: Celecoxib 200 MG Cap PO ONE (09:15)
[2018-11-13] MEDS ORDERED: Dextrose 5%-Lactated Ringers 1,000 ML IV SCH (10:00)
[2018-11-13] MEDS ORDERED: fentaNYL 250 MCG/5 ML SDV ONE (10:04)
[2018-11-13] MEDS ORDERED: Succinylcholine 200 MG/10 ML MDV ONE (10:05)
[2018-11-13] MEDS ORDERED: Rocuronium 50 MG/5 ML Vial ONE (10:05)
[2018-11-13] MEDS ORDERED: Glycopyrrolate 0.2 MG/ML 5 ML MDV ONE (10:05)
[2018-11-13] MEDS ORDERED: Ondansetron 4 MG/2 ML SDV ONE (10:05)
[2018-11-13] MEDS ORDERED: Neostigmine Methylsulfate 1 MG/ML 5 ML Syringe ONE (10:05)
[2018-11-13] MEDS ORDERED: Dexamethasone 4 MG/ML SDV ONE (10:05)
[2018-11-13] MEDS ORDERED: Propofol 200 MG/20 ML SDV ONE (10:05)
[2018-11-13] MEDS ORDERED: cefOXitin 2 GM in Sodium Chloride 0.9% 50 ML IV ONE (10:30)
[2018-11-13] MEDS ORDERED: Lactated Ringers 1,000 ML ONE (12:07)
[2018-11-13] MEDS ORDERED: fentaNYL 100 MCG/2 ML SDV ONE (13:18)
[2018-11-13] MEDS ORDERED: hydrOXYzine HCl 100 MG/2 ML SDV IM ONE (14:17)
[2018-11-13] MEDS ORDERED: fentaNYL 100 MCG/2 ML SDV IVPUSH ONE (14:17)
[2018-11-13] MEDS: Lidocaine 0.4%/D5W 2 GM/500 ML BAG IV SCH (15:00)
[2018-11-13] MEDS ORDERED: Ondansetron 4 MG/2 ML SDV IVPUSH PRN (15:43)
[2018-11-13] MEDS ORDERED: hydrOXYzine HCl 100 MG/2 ML SDV IM PRN (15:43)
[2018-11-13] MEDS ORDERED: HYDROmorphone 0.5 MG/0.5 ML Syringe IVPUSH PRN (15:43)
[2018-11-13] MEDS ORDERED: Labetalol 20 MG/4 ML Syringe IVPUSH PRN (15:43)
[2018-11-13] MEDS ORDERED: diphenhydrAMINE 50 MG/ML SDV IVPUSH PRN (15:43)
[2018-11-13] MEDS ORDERED: Acetaminophen Soln 650 MG/20.3 ML UD Cup PO SCH (15:43)
[2018-11-13] MEDS ORDERED: Metoclopramide 10 MG/2 ML SDV IVPUSH PRN (15:43)
[2018-11-13] MEDS ORDERED: HYDROmorphone 1 MG/ML Syringe IV PRN (15:43)
[2018-11-13] MEDS: Acetaminophen 325 MG Tab PO SCH ×2 (16:22→22:05)
[2018-11-13] MEDS: cefOXitin 2 GM in Sodium Chloride 0.9% 50 ML IV SCH ×2 (16:26→22:03)
[2018-11-13] MEDS: MVI, Adult with Vitamin K 10 ML, Thiamine 200 MG, Chromium/Copper/Mang/Selen/Zn 1 ML in... IV SCH ×4 (16:27)
[2018-11-13] MEDS ORDERED: Pantoprazole 40 MG Vial IVPUSH SCH (17:00)
[2018-11-13] MEDS: Dextrose 5%-Lactated Ringers 1,000 ML IV SCH (22:02)
[2018-11-14] MEDS ORDERED: Iopamidol 510 MG/ML 50 ML SDV PO STA (03:41)
[2018-11-14] MEDS: Dextrose 5%-Lactated Ringers 1,000 ML IV SCH ×2 (04:10→10:05)
[2018-11-14] MEDS: Acetaminophen 325 MG Tab PO SCH (04:17)
[2018-11-14] MEDS: cefOXitin 2 GM in Sodium Chloride 0.9% 50 ML IV SCH ×4 (04:21→23:22)
--- NOTE | 2018-11-14 04:29 | CRLCR ---
INDICATION: Mine and why revision with small-bowel release TECHNIQUE: Abdomen modified upper GI COMPARISON: CT scan pelvis 11/12/2018 FINDINGS: Oral contrast is identified within small bowel loops in the ascending colon. No evidence for bowel obstruction or extravasation of contrast. IMPRESSION: Oral contrast is identified in small bowel loops and the ascending colon. No evidence for small bowel obstruction or leakage of contrast. Dictated by Vinny Esqueda MD @ Nov 14 2018 4:26AM Signed by Dr. Vinny Esqueda @ Nov 14 2018 4:27AM
[2018-11-14] MEDS ORDERED: Acetaminophen 325 MG Tab PO PRN (07:17)
[2018-11-14] MEDS ORDERED: Ondansetron 4 MG Tab.DIS PO PRN (07:18)
[2018-11-14] MEDS: Celecoxib 200 MG Cap PO SCH (07:47)
[2018-11-14] MEDS: Magnesium Sulfate/Water 2 GM in Premix Bag 1 BAG IV SCH ×3 (07:47→19:36)
[2018-11-14] MEDS ORDERED: Sodium Ferric Gluconate Cmplex 250 MG in Sodium Chloride 0.9% 100 ML IV ONE (10:00)
[2018-11-14] MEDS: SCOPOLAMINE PATCH CHECK TOP SCH (10:03)
[2018-11-14] MEDS: Lidocaine 0.4%/D5W 2 GM/500 ML BAG IV SCH (10:03)
[2018-11-14] MEDS: Cyclobenzaprine 10 MG Tab PO PRN ×2 (10:18→17:24)
[2018-11-14] MEDS: Acetaminophen/HYDROcodone 325-5 MG Tab PO PRN ×4 (10:18→22:28)
--- NOTE | 2018-11-14 10:24 | PN ---
DATE OF SERVICE: 11/14/2018 SUBJECTIVE: Radha is postoperative day #1. She states her pain has been controlled. She has been up ambulating. Vital signs have been stable. Afebrile. IV intake 3100. Hernández catheter output 1375. She was quite dehydrated on admission. Upper GI was normal. REVIEW OF SYSTEMS: Remainder of review of systems negative for any pertinent positives and negatives. OBJECTIVE: GENERAL: Radha Rico is a pleasant 43-year-old female. VITAL SIGNS: TPR 97.9, 61, 18, blood pressure 109/59. HEENT: Negative. NECK: Supple. HEART: Regular rate and rhythm. LUNGS: Clear. ABDOMEN: Dressing dry and intact. Abdominal binder is on. EXTREMITIES: Without peripheral edema. SCDs are on. ASSESSMENT: 1. Exploratory laparotomy with lysis of extensive adhesions. a. Small-bowel resection, distal small bowel. b. Revision of the jejunojejunostomy component of the Mine-en-Y gastric bypass. c. Placement of Interceed mesh for a postop diagnosis of distal partial small bowel obstruction with hemorrhagic small bowel mesentery, partial small bowel at the jejunojejunostomy and extensive intraabdominal adhesions. Date of surgery: 11/13/2018. Surgeon: Duong Kolb MD. 2. Low magnesium of 1.4. PLAN: 1. Magnesium 2 g IV q.6 hours x72 hours. 2. Discontinue Hernández catheter. 3. Step 3 gastric bypass diet. 4. Decrease IV rate to 100 mL per hour. 5. Discontinue IV Dilaudid. 6. [place] 5/325 mg 1 to 2 every 4 hours p.r.n. pain. 7. Cyclobenzaprine/Flexeril 10 mg q.6 hours p.r.n. muscle spasms. 8. Good pulmonary toilet. 9. We will evaluate p.r.n. or in a.m. Suzie Davis PA-C /[id number]
[2018-11-14] MEDS: Pantoprazole 40 MG Tab.CR PO SCH (11:17)
[2018-11-14] MEDS: MVI, Adult with Vitamin K 10 ML, Thiamine 200 MG, Chromium/Copper/Mang/Selen/Zn 1 ML in... IV SCH ×4 (17:24)
[2018-11-15] MEDS: Acetaminophen/HYDROcodone 325-5 MG Tab PO PRN ×2 (02:39→07:01)
[2018-11-15] MEDS: Magnesium Sulfate/Water 2 GM in Premix Bag 1 BAG IV SCH ×4 (02:39→19:25)
[2018-11-15] MEDS: Dextrose 5%-Lactated Ringers 1,000 ML IV SCH (02:40)
[2018-11-15] MEDS: cefOXitin 2 GM in Sodium Chloride 0.9% 50 ML IV SCH ×2 (05:13→12:17)
[2018-11-15] MEDS: Pantoprazole 40 MG Tab.CR PO SCH (07:47)
[2018-11-15] MEDS: Celecoxib 200 MG Cap PO SCH (07:48)
[2018-11-15] MEDS ORDERED: Sodium Chloride 0.9% 10 ML Syringe IV PRN (08:18)
[2018-11-15] MEDS ORDERED: oxyCODONE 5 MG Tab PO PRN (08:19)
[2018-11-15] MEDS ORDERED: Cyanocobalamin (Vitamin B12) 1,000 MCG/ML SDV IM ONE (09:00)
[2018-11-15] MEDS: SCOPOLAMINE PATCH CHECK TOP SCH (09:07)
[2018-11-15] MEDS ORDERED: SODIUM CHLORIDE 0.9% IV ONE (10:00)
[2018-11-15] MEDS ORDERED: SODIUM FERRIC GLUCONATE CMPLEX IV ONE (10:00)
[2018-11-15] MEDS: Acetaminophen 500 MG Tab PO SCH ×3 (11:11→22:23)
[2018-11-15] MEDS: oxyCODONE 5 MG Tab PO PRN ×4 (11:13→23:21)
[2018-11-16] MEDS: oxyCODONE 5 MG Tab PO PRN ×2 (03:17→07:28)
[2018-11-16] MEDS: Acetaminophen 500 MG Tab PO SCH ×2 (03:17→09:27)
[2018-11-16] MEDS: Celecoxib 200 MG Cap PO SCH (07:29)
[2018-11-16] MEDS: Pantoprazole 40 MG Tab.CR PO SCH (07:29)
[2018-11-16 07:35] VITALS: BP 107/71
[2018-11-16] MEDS ORDERED: Magnesium Hydroxide 400 MG/5 ML Susp 30 ML Cup PO ONE (08:11)
--- NOTE | 2018-11-19 13:25 | DISCH ---
FINAL DIAGNOSES: 1. Distal partial small bowel obstruction with hemorrhage into the small bowel mesentery. 2. Partial small bowel obstruction at jejunojejunostomy. 3. Extensive intraabdominal adhesions. 4. Status post previous Mine-en-Y gastric bypass. 5. Treated hypothyroidism. OPERATIVE PROCEDURES: Done on 11/13: Exploratory laparotomy with lysis of extensive adhesions and: 1. Small bowel resection (distal small bowel). 2. Revision of jejunojejunostomy component of Mine-en-Y gastric bypass. 3. Placement of Interceed mesh to limit recurrent adhesion formation between pelvic and abdominal wall and underlying viscera. SUMMARY: This is a 43-year-old female presenting with recurrent partial small bowel obstruction. On the day of admission, the patient underwent exploratory laparotomy. This would require revision of some of her lower abdominal mesh. The patient was noted to have 2 sites of obstruction within the distal small bowel. The patient had an area of marked edema and some old-appearing hemorrhage within the mesentery adjacent to it. This was resected. The patient also had a markedly dilated jejunojejunostomy suggestive of this being involvement of some volvulus or partial obstruction leading to the laxity of the small bowel and probably some angulation at the anastomosis. The distal small area was resected and jejunojejunostomy performed and Mine-en-Y gastric bypass was revised as outlined in the operative report. Interceed mesh was placed to limit recurrent adhesion formation. Postoperatively, pain control was somewhat of a difficulty, but presently she appears to be doing well with a combination of scheduled Tylenol 1 g q.i.d.; oxycodone 5 to 10 mg q.4 hours p.r.n. pain, #50; Celebrex 200 mg p.o. daily #30, and we started her also on 2 doses of milk of magnesia and she will, otherwise, be continuing her usual home medications. She will be instructed to stay off heavy lifting for 6 weeks postoperatively and follow up with Suzie Davis at [facility] on 11/25/2018 at 10:30 a.m.
--- NOTE | 2018-11-19 15:19 | PN ---
DATE OF SERVICE: 11/15/2018 The patient has been afebrile with stable vital signs. The main problem is inadequate pain control at this point, and [place] is being given at a rate that she would exceed her 4 g of Tylenol dose daily limit, and we will therefore switch over to some scheduled oral Tylenol and then discontinue the [place] and go with oxycodone 5 mg 1 to 2 tablets q.4 hours p.r.n. pain. If we get pain controlled adequately orally today, we will let her go home tomorrow. Duong Kolb MD /[id number]
--- NOTE | 2018-11-20 08:31 | OR ---
DATE OF PROCEDURE: 11/13/2018 SURGEON: Duong Kolb MD PREOPERATIVE DIAGNOSIS: Partial small bowel obstruction. POSTOPERATIVE DIAGNOSES: 1. Partial small bowel obstruction at: a. Distal Mine limb associated with hemorrhage into small bowel mesentery. b. Additional point of obstruction that likely is site of chronic intussusception of small bowel at jejunojejunostomy. 2. Extensive intraabdominal adhesions. OPERATIVE PROCEDURE: Exploratory laparotomy with lysis of extensive adhesions with: 1. Small bowel resection (34121). 2. Revision of jejunojejunostomy component of Mine-en-Y gastric bypass (99877). 3. Placement of Interceed mesh to limit recurrent adhesion formation (83620). ANESTHESIA: General. INDICATION FOR PROCEDURE: This is a 43-year-old female presenting with partial small-bowel obstruction, status post previous Mine-en-Y gastric bypass. The plan is to proceed with limited exploratory laparotomy with lysis of adhesions and/or small bowel resection. Additionally, if the jejunojejunostomy component of Imne-en-Y gastric bypass is involved, that may need to be revised concurrently. Potential risks of the procedure including bleeding, infection, leaks from various GI tract closures, possible recurrence of the bowel obstruction over time were all reviewed, and the patient wishes to proceed. DETAILS OF PROCEDURE: The patient was taken to the operating room and after general endotracheal anesthesia was induced, a Hernández catheter was inserted, and the abdomen was prepped and draped. A midline incision from the umbilicus roughly a handsbreadth toward the xiphoid was made and carried down through the skin, subcutaneous tissue, fascia, and the peritoneal cavity. There were fairly extensive adhesions between the omentum and a segment of small bowel and the pelvic and abdominal wall. These were then taken down primarily with electrocautery, along with some sharp dissection near the bowel surface. General exploration then revealed 2 areas of concern. In the distal common limb, there was an area of bowel that was markedly edematous and dilated. This was associated with some old- appearing hemorrhage within the mesentery, confirming this was likely secondary to significant pathology. The jejunojejunostomy component of Mine-en-Y gastric bypass was also quite dilated and appeared to be involved in chronic intussusception that likely would be the Mine limb prolapsing into the anastomosis, causing this whole area to be markedly dilated and edematous. Decision was made to proceed with resection of the former site and then revision of the jejunojejunostomy to complete the correction of the patient's obstructive problems. Initially, the distal small bowel was divided proximal and distal to the area of concern with the WALDO mary, as was the underlying mesentery, and then specimen delivered from the field. [id number]-bn-oaut enteroenterostomy was accomplished with an internal firing of the Endo- WALDO 60-mm stapler, and the common opening closed transversely with the same stapler. Angles of anastomosis and mesenteric defect approximated with some 3-0 Vicryl stitch. Attention was taken to the jejunojejunostomy. The Mine limb at this point was divided more or less flush with the jejunojejunostomy using the linear WALDO stapler. Both sides appeared to have adequate blood supply. Small amount of the Mine limb was then resected, so that we would not have intersecting staple lines at the secondary anastomosis, this with WALDO stapler as well, and the anastomosis was then completed roughly 30 cm distal to the original jejunojejunostomy, creating a new revised jejunojejunostomy and [id number] enteroenterostomy with sequence of stapled 60-mm linear mary. The angles of anastomosis were approximated with 3-0 Vicryl stitch. There was a significant mesenteric defect, which was closed with a 2-0 silk stitch to provide some more in the way of permanency. At this point, both anastomoses were reinforced with fibrin sealant. The omentum was not satisfactory to get down toward the pelvis. Given this, 2 Interceed meshes were then placed, beginning down in the pelvis and up toward the abdominal wall to displace those surfaces from the surrounding. The midline fascia was then approximated with #2 Vicryl stitch, the subcutaneous tissue with 2 layers of 3-0 Vicryl stitch, and the skin with mary. The patient had received bilateral transversus abdominis plane blocks, and the incision was anesthetized with some 0.5% Marcaine. The patient was taken to the recovery room in satisfactory condition. There were no evident complications. Physician security assistant, Suzie Davis PA-C, played an essential role in assisting in this case, helping to position the patient, retract structures as indicated, as well as suturing and cutting sutures when indicated and applying mary. Her presence improved the patient's safety and decreased the operative time. Duong Kolb MD /[id number]
== END 2018-11-16 10:25 | disposition home or self-care (01) | DRG 328 ==
LOC: EDSTATUS 08:30 → JP.SDSSCHI 09:00 → JP.SDS 09:00 → JP.MS 14:30
PROVIDERS: ADMIT Surgery; ATTEND Surgery
PROC: 0D160ZA Bypass Stomach to Jejunum, Open Approach (ICD-10-PCS; principal; 2018-11-13)
PROC: 0DN80ZZ Release Small Intestine, Open Approach (ICD-10-PCS; 2018-11-13)
PROC: 0WUF0JZ Supplement Abdominal Wall with Synthetic Substitute, Open Approach (ICD-10-PCS; 2018-11-13)
PROC: 0DB80ZZ Excision of Small Intestine, Open Approach (ICD-10-PCS; 2018-11-13)
DX: K56.51 Intestinal adhesions [bands], with partial obstruction (principal); E53.8 Deficiency of other specified B group vitamins; E53.9 Vitamin B deficiency, unspecified; E55.9 Vitamin D deficiency, unspecified; E86.0 Dehydration; E03.9 Hypothyroidism, unspecified; E83.42 Hypomagnesemia; Z98.84 Bariatric surgery status; Z90.49 Acquired absence of other specified parts of digestive tract; Z98.890 Other specified postprocedural states
CPT/HCPCS: 36415; 74240; 80053; 81025; 83735; 83880; 84100; 85025; 88307; 94762; A9270-GY; C9113; J0171; J0330; J0694; J1100; J1170; J2001; J2020; J2185; J2405; J2704; J2710; J2795; J2916; J3010; J3410; J3411; J3420; J3475; J3490; J7030; J7042; J7050; J7120; Q9966

== ENCOUNTER 2018-11-25 15:50 | Inpatient (IN) | payer OTHER ==
[2018-11-25] MEDS ORDERED: Dextrose 5%-Lactated Ringers 1,000 ML IV SCH ×2 (16:45→22:00)
[2018-11-25] MEDS ORDERED: Lidocaine 0.4%/D5W 2 GM/500 ML BAG IV SCH (17:00)
[2018-11-25] MEDS ORDERED: Ketamine 500 MG/5 ML MDV IV SCH (17:00)
[2018-11-25] MEDS ORDERED: Ketamine 50 MG in Sodium Chloride 0.9% 49.5 ML IV SCH (17:00)
[2018-11-25] MEDS ORDERED: Lidocaine 2% 100 MG/5 ML Syringe IVPUSH SCH (17:00)
[2018-11-25] MEDS ORDERED: fentaNYL 250 MCG/5 ML SDV ONE (17:09)
[2018-11-25] MEDS ORDERED: Midazolam 1 MG/ML 2 ML SDV ONE (17:09)
[2018-11-25] MEDS ORDERED: Ondansetron 4 MG/2 ML SDV ONE (17:10)
[2018-11-25] MEDS ORDERED: Rocuronium 50 MG/5 ML Vial ONE (17:10)
[2018-11-25] MEDS ORDERED: Succinylcholine 200 MG/10 ML MDV ONE (17:10)
[2018-11-25] MEDS ORDERED: Glycopyrrolate 0.2 MG/ML 5 ML MDV ONE (17:10)
[2018-11-25] MEDS ORDERED: Dexamethasone 4 MG/ML SDV ONE (17:10)
[2018-11-25] MEDS ORDERED: Propofol 200 MG/20 ML SDV ONE (17:10)
[2018-11-25] MEDS ORDERED: Neostigmine Methylsulfate 1 MG/ML 5 ML Syringe ONE (17:10)
[2018-11-25] MEDS ORDERED: Meropenem 500 MG SDV ONE (17:41)
[2018-11-25] MEDS: Ampicillin/Sulbactam Na 3 GM in Sodium Chloride 0.9% 100 ML IV ONE ×2 (17:45→20:02)
[2018-11-25] MEDS ORDERED: fentaNYL 100 MCG/2 ML SDV ONE (18:14)
[2018-11-25] MEDS ORDERED: Lactated Ringers 1,000 ML ONE (18:25)
[2018-11-25] MEDS ORDERED: Cyclobenzaprine 10 MG Tab PO PRN (20:09)
[2018-11-25] MEDS ORDERED: hydrOXYzine HCl 100 MG/2 ML SDV IM PRN (20:09)
[2018-11-25] MEDS ORDERED: Ondansetron 4 MG/2 ML SDV IVPUSH PRN (20:25)
[2018-11-25] MEDS ORDERED: Metoclopramide 10 MG/2 ML SDV IVPUSH PRN (20:26)
[2018-11-25] MEDS ORDERED: diphenhydrAMINE 50 MG/ML SDV IVPUSH PRN (20:27)
[2018-11-25] MEDS ORDERED: Labetalol 100 MG/20 ML MDV IV PRN (20:34)
[2018-11-25] MEDS: Pantoprazole 40 MG Vial IV SCH (22:00)
[2018-11-25] MEDS: HYDROmorphone 0.5 MG/0.5 ML Syringe IVPUSH PRN (22:06)
[2018-11-26] MEDS: Meropenem 500 MG in Sodium Chloride 0.9% 50 ML IV SCH ×4 (00:19→17:13)
[2018-11-26] MEDS: Acetaminophen 325 MG Tab PO SCH ×4 (00:20→19:32)
[2018-11-26] MEDS ORDERED: Iopamidol 612 MG/ML 50 ML SDV PO STA (02:44)
--- NOTE | 2018-11-26 05:10 | CRLCR ---
Indication: Small-bowel resection Technique: Two views of the abdomen obtained following the administration of oral contrast. Comparison: 11/14/2018 Findings/Impression : Apparent gastrojejunostomy. Contrast opacifies small bowel segments. A 7 mm ovoid focus of contrast near the proximal jejunostomy could be within a small fold. Otherwise no gross extravasation seen. Multiple abdominal surgical coils, right upper quadrant clips and anterior lower abdominal skin mary. A partially imaged IUD in the pelvis. No suspicious osseous abnormalities. Dictated by Trevor Post MD @ 11/26/2018 5:08:29 AM Dictated by: Trevor Post MD @ 11/26/2018 05:08:34 (Electronically Signed)
[2018-11-26] MEDS ORDERED: Ondansetron 4 MG Tab.DIS PO PRN (07:22)
[2018-11-26] MEDS: Heparin Sodium 5,000 Units/ML Vial SUBCUT SCH ×2 (09:37→20:21)
[2018-11-26] MEDS: Dextrose 5%-Lactated Ringers 1,000 ML IV SCH ×2 (09:37→20:28)
[2018-11-26] MEDS: HYDROmorphone 0.5 MG/0.5 ML Syringe IVPUSH PRN ×2 (09:42→12:13)
--- NOTE | 2018-11-26 10:22 | PN ---
DATE OF SERVICE: 11/26/2018 SUBJECTIVE: Radha is postop day 1. She is very sleepy, but arouses to answer questions. Vital signs have been stable. Oral intake 125. Urine output 1850. Reports pain is controlled. REVIEW OF SYSTEMS: Remainder of review of systems negative for any pertinent positives and negatives. OBJECTIVE: GENERAL: Radha Rico is a pleasant 43-year-old female. VITAL SIGNS: TPR is 96.4, 58, 16. Blood pressure 117/66. HEENT: Negative. NECK: Supple. HEART: Regular rate and rhythm. LUNGS: Clear. ABDOMEN: Dressing dry and intact. Abdominal binder is on. Hernández catheter in place. EXTREMITIES: Without peripheral edema. ASSESSMENT: Exploratory laparotomy with lysis of adhesions. 1. Enteroenterostomy to bypass biliary pancreatic limb beyond first-degree jejunojejunostomy. 2. Enterotomy for tube decompression of small bowel. 3. Placement of Interceed mesh for acute adhesive obstruction of the biliary pancreatic limb proximal to the jejunojejunostomy and proximal small bowel distention. Date of surgery 11/25/2018. Surgeon, Duong Kolb MD. PLAN: 1. Step-2 gastric bypass diet. 2. Decrease IV to 100 mL per hour. 3. Discontinue Hernández. 4. May shower. 5. Good pulmonary toilet. 6. We will evaluate p.r.n. or in a.m. Suzie Davis PA-C /[id number]
[2018-11-26] MEDS ORDERED: HYDROmorphone/Normal Saline 15 MG/30 ML PCA IV PRN (13:04)
[2018-11-26] MEDS ORDERED: Naloxone 0.4 MG/ML SDV IVPUSH PRN (13:04)
[2018-11-26] MEDS ORDERED: MVI, Adult with Vitamin K 10 ML, Thiamine 200 MG, Chromium/Copper/Mang/Selen/Zn 1 ML in... IV SCH ×4 (16:00)
[2018-11-26] MEDS: Pantoprazole 40 MG Vial IV SCH (20:21)
[2018-11-27] MEDS: Acetaminophen 325 MG Tab PO SCH ×3 (00:36→13:09)
[2018-11-27] MEDS: Meropenem 500 MG in Sodium Chloride 0.9% 50 ML IV SCH ×4 (00:38→19:03)
[2018-11-27] MEDS: Dextrose 5%-Lactated Ringers 1,000 ML IV SCH (04:44)
[2018-11-27] MEDS: HYDROmorphone 2 MG Tab PO PRN ×3 (08:57→18:07)
[2018-11-27] MEDS ORDERED: Cyanocobalamin (Vitamin B12) 1,000 MCG/ML SDV IM ONE (09:00)
[2018-11-27] MEDS ORDERED: Magnesium Hydroxide 400 MG/5 ML Susp 30 ML Cup PO ONE (09:00)
[2018-11-27] MEDS: Heparin Sodium 5,000 Units/ML Vial SUBCUT SCH (09:39)
[2018-11-27] MEDS ORDERED: Bisacodyl 5 MG Tab PO ONE (10:00)
--- NOTE | 2018-11-27 11:56 | PN ---
DATE OF SERVICE: 11/27/2018 SUBJECTIVE: Radha states her pain is controlled. She is passing flatus. She has been up ambulating. Vital signs have been stable. Oral intake 2400. Urine output 1450. She has had 100% of lunch and 100% of bedtime snack. REVIEW OF SYSTEMS: Remainder of review of systems negative for any pertinent positives and negatives. OBJECTIVE: GENERAL: Radha Rico is a pleasant 43-year-old female. She is alert, oriented. Color pale. VITAL SIGNS: TPR 97.1, 57, 16, blood pressure 109/62. HEENT: Negative. NECK: Supple. HEART: Regular rate and rhythm. LUNGS: Clear. ABDOMEN: Dressings dry and intact. Aquacel dressing is on. Abdominal binder is on. EXTREMITIES: Without peripheral edema. ASSESSMENT: 1. Exploratory laparotomy with lysis of adhesion. 2. Enterotomy to bypass biliary pancreatic limb beyond first degree jejunojejunostomy. 3. Enterotomy for tube decompression of small bowel. 4. Placement of Interceed mesh for acute adhesive obstruction of the biliary pancreatic limb proximal to the jejunojejunostomy and proximal small bowel distention. 5. Date of surgery: 11/25/2018. Surgeon: Duong Kolb MD. PLAN: 1. Milk of magnesia 30 mL. 2. Dulcolax two tablets followed in 1 hour after milk of magnesia. 3. Discontinue DELINEATOR. 4. Dilaudid 2 mg 1 to 2 every 4 hours p.r.n. pain. Continue good pulmonary toilet. 5. We will evaluate p.r.n. or in a.m. Suzie Davis PA-C /[id number]
[2018-11-27 15:56] VITALS: BP 124/71; PULSE 62
[2018-11-27] MEDS ORDERED: MVI, Adult with Vitamin K 10 ML, Thiamine 200 MG, Chromium/Copper/Mang/Selen/Zn 1 ML in... IV SCH ×4 (16:00)
[2018-11-27] MEDS ORDERED: Pantoprazole 40 MG Tab.CR PO SCH (21:00)
--- NOTE | 2018-12-04 11:35 | DISCH ---
FINAL DIAGNOSES: 1. Acute adhesive obstruction of biliopancreatic limb of small bowel proximal to the jejunojejunostomy and then marked proximal small bowel distention. She has a bariatric surgery status. 2. Treated hypothyroidism. 3. Malabsorption with micronutrient deficiencies. OPERATIVE PROCEDURES: This was done on 11/25/18, exploratory laparotomy with lysis of adhesions and: 1. Enteroenterostomy to bypass biliopancreatic limb beyond primary jejunojejunostomy. 2. Enterotomy for tube decompression of the small bowel. 3. Placement of Interceed mesh to limit recurrent adhesion formation. SUMMARY: This is a 43-year-old presenting with acute adhesive obstruction after recent surgical intervention to her abdomen with the above-noted findings. She was treated surgically fairly urgently, as on CT scan this appeared to be behaving as an closed loop obstruction and underwent the above procedures. She did have previous mesh once again opened, and hopefully this will not get infected. We were very careful to avoid contamination of that during the course of the procedure. At present, she is moving her bowels and eating satisfactorily. She will be discharged home. Continue her present medications. She does have some Dilaudid at home, #40 additional Dilaudid in the event that she needs some more in the interim. She will be instructed to stay on Step-3 gastric bypass diet for 2 weeks and then the usual gastric bypass diet. She will be planning to return to work on 12/03/2018, with lifting restriction of 15 pounds or less until 12/25/2018. Followup will be with Suzie Davis at [facility] in [place] on 12/09/2018.
--- NOTE | 2018-12-04 14:11 | OR ---
DATE OF PROCEDURE: 11/25/2018 SURGEON: Duong Kolb MD PREOPERATIVE DIAGNOSIS: Recurrent small-bowel obstruction. POSTOPERATIVE DIAGNOSES: 1. Acute adhesive obstruction of biliopancreatic limb proximal to the jejunojejunostomy. 2. Marked proximal small-bowel distention. OPERATIVE PROCEDURES: Exploratory laparotomy with lysis of adhesions and: 1. Enteroenterostomy to bypass biliopancreatic limb beyond point of the primary jejunojejunostomy (19720). 2. Enterotomy for tube decompression of small bowel (96730). 3. Placement of Interceed mesh to limit recurrent adhesion formation between pelvic and abdominal wall and also between loops of the small bowel and the previous point of adhesion of the biliopancreatic limb to the base of mesentery (31221). ANESTHESIA: General. INDICATION FOR PROCEDURE: This is a 43-year-old recently status post revision of Mine-en-Y gastric bypass involving the jejunostomy site, presenting with recurrent acute obstruction. The patient is fairly uncomfortable, and a nonoperative approach appeared to be untenable, given the patient's degree of discomfort and the amount of distention seen on preoperative CT scan. This also appeared to be somewhat of a closed-loop obstruction of biliopancreatic limb, all of these necessitating relatively urgent surgical intervention, as a limited laparotomy with lysis of adhesions and/or bowel obstruction as indicated. Potential risks including bleeding, infection, leaks from various GI tract closures, problems with bowel obstruction recurring were all reviewed, and the patient wishes to proceed. DETAILS OF PROCEDURE: The patient was taken to the operating room and after general endotracheal anesthesia was induced, the previous mary were removed, along with the underlying subcutaneous tissue and fascial stitches and the peritoneal cavity entered. A small amount of clear ascitic fluid was present. On examination, the patient appeared to have a point where the biliopancreatic limb or somewhat proximal, perhaps in the range of 8- 10 cm, was acutely adherent to the base of the mesentery, creating a sharp angulation of the biliopancreatic limb at that level. Proximal to that, the biliopancreatic limb was strikingly dilated. As these adhesions were taken upward, the recent anastomosis otherwise appeared to be intact, and it was felt that we did not need to necessarily redo that anastomosis. It was felt that there is some possibility that the biliopancreatic limb could fall back into that same location and be obstructed again. Given this, somewhat proximal to that point, a second enteroenterostomy between the biliopancreatic limb and the small bowel roughly 20 cm distal to the primary jejunojejunostomy was accomplished with internal firing of the Endo-WALDO 60 mm stapler. The common opening was then closed transversely using the same stapler and the angles anastomosed and mesenteric defect approximated with some 3-0 Vicryl stitch. Prior to that anastomosis being accomplished at the point of enterotomy at the biliopancreatic limb, Cotton sump tube was placed and a large volume of fluid was removed so as to decompress the area. This also served to decompress the bypassed stomach, which had its contents milked through the duodenum into the point of the Cotton sump tube at the base of the mesentery within the jejunoduodenal junction, thus decompressing that area successfully as well. Following the removal of that tube, the above anastomosis was completed and no further problems noted. The abdomen was irrigated with antibiotic- containing saline solution. Some Interceed mesh was then placed at the base of the mesentery so as to try to avoid recurrent adhesion formation between the overlying small bowel and that area and also then underneath the abdominal wall and pelvic wall to limit recurrent adhesion formation between those areas. Once this was in place, the midline fascia was approximated with #2 Vicryl stitch, subcutaneous tissue with 4-0 Vicryl stitch, and a 4-0 Vicryl subdermal stitch, and the skin was closed with mary. The patient also had received bilateral transversus abdominis plane blocks and the fascia was injected with 0.5% Marcaine mixed with lidocaine. The patient was taken to the recovery room in satisfactory condition. There were no evident complications. Duong Kolb MD /[id number]
== END 2018-11-27 19:41 | disposition home or self-care (01) | DRG 328 ==
LOC: JP.MS 15:50
PROVIDERS: ADMIT Surgery; ATTEND Surgery
PROC: 0D1 Gastrointestinal System, Bypass (ICD-10-PCS; principal; 2018-11-25)
PROC: 0D9600Z Drainage of Stomach with Drainage Device, Open Approach (ICD-10-PCS; 2018-11-25)
PROC: 3E0M05Z Introduction of Adhesion Barrier into Peritoneal Cavity, Open Approach (ICD-10-PCS; 2018-11-25)
DX: K56.609 Unspecified intestinal obstruction, unspecified as to partial versus complete obstruction (principal); E53.8 Deficiency of other specified B group vitamins; K21.9 Gastro-esophageal reflux disease without esophagitis; E03.9 Hypothyroidism, unspecified; Z88.8 Allergy status to other drugs, medicaments and biological substances; Z79.899 Other long term (current) drug therapy; Z98.84 Bariatric surgery status; Z90.49 Acquired absence of other specified parts of digestive tract; Z98.890 Other specified postprocedural states
CPT/HCPCS: 36415; 74240; 80053; 83735; 83880; 84100; 85025; 94762; A9270-GY; C9113; J0131; J0171; J0295; J0330; J1100; J1170; J1644; J2001; J2020; J2185; J2250; J2405; J2704; J2710; J2795; J3010; J3411; J3420; J3490; J7030; J7042; J7050; J7120; Q9967

== ENCOUNTER 2019-05-07 07:51 | Inpatient (IN) | payer OTHER ==
[~2019-05-07 07:51] MED LIST changes: +Bupivacaine 0.5% 50 ML MDV ONE; -Ketamine 50 MG in Sodium Chloride 0.9% 49.5 ML IV SCH; -Ketamine 500 MG/5 ML MDV IV SCH; +Lidocaine 1% with EPINEPHrine 1:100,000 50 ML MDV ONE; -Lidocaine 2% 100 MG/5 ML Syringe IVPUSH SCH; -Meropenem 500 MG SDV ONE
[2019-05-07] MEDS ORDERED: Naloxone 0.4 MG/ML SDV IV PRN (07:53)
[2019-05-07] MEDS ORDERED: HYDROmorphone/Normal Saline 15 MG/30 ML PCA IV PRN (07:53)
[2019-05-07] MEDS ORDERED: fentaNYL 250 MCG/5 ML SDV ONE ×2 (08:02→12:52)
[2019-05-07] MEDS ORDERED: Propofol 200 MG/20 ML SDV ONE (08:02)
[2019-05-07] MEDS ORDERED: Succinylcholine 200 MG/10 ML MDV ONE (08:02)
[2019-05-07] MEDS ORDERED: Rocuronium 50 MG/5 ML Vial ONE (08:02)
[2019-05-07] MEDS ORDERED: Ondansetron 4 MG/2 ML SDV ONE (08:04)
[2019-05-07] MEDS ORDERED: Neostigmine Methylsulfate 1 MG/ML 5 ML Syringe ONE (08:04)
[2019-05-07] MEDS ORDERED: Dexamethasone 4 MG/ML SDV ONE (08:04)
[2019-05-07] MEDS ORDERED: Glycopyrrolate 0.2 MG/ML 5 ML MDV ONE (08:04)
[2019-05-07] MEDS ORDERED: Acetaminophen 500 MG Tab PO ONE (08:30)
[2019-05-07] MEDS ORDERED: Celecoxib 200 MG Cap PO ONE (08:30)
[2019-05-07] MEDS ORDERED: ceFAZolin 2 GM in Premix Bag 1 BAG IV ONE (08:50)
[2019-05-07] MEDS ORDERED: Dextrose 5%-Lactated Ringers 1,000 ML IV SCH (08:50)
[2019-05-07] MEDS ORDERED: Meropenem 500 MG SDV ONE (09:36)
[2019-05-07] MEDS ORDERED: Ketamine 500 MG/5 ML MDV IV SCH (09:45)
[2019-05-07] MEDS ORDERED: Ropivacaine 50 ML, dexAMETHasone 8 MG, EPINEPHrine 0.4 MG, Sodium Chloride 0.9% 27.6 ML NERVRT SCH ×4 (09:45)
[2019-05-07] MEDS ORDERED: Ketamine 50 MG in Sodium Chloride 0.9% 49.5 ML IV SCH (09:45)
[2019-05-07] MEDS ORDERED: Lactated Ringers 1,000 ML ONE (12:20)
[2019-05-07] MEDS ORDERED: Mupirocin Oint 22 GM Tube ONE (13:22)
[2019-05-07] MEDS ORDERED: hydrOXYzine HCL 100 MG/2 ML SDV IM ONE (13:51)
[2019-05-07] MEDS ORDERED: hydrOXYzine HCL 100 MG/2 ML SDV IM PRN (15:26)
[2019-05-07] MEDS ORDERED: Labetalol 20 MG/4 ML Syringe IVPUSH PRN (15:26)
[2019-05-07] MEDS ORDERED: Ondansetron 4 MG/2 ML SDV IVPUSH PRN (15:26)
[2019-05-07] MEDS: Dextrose 5%-Lactated Ringers 1,000 ML IV SCH ×2 (16:58→23:18)
[2019-05-07] MEDS: Magnesium Sulfate/Water 2 GM in Premix Bag 1 BAG IV SCH ×2 (17:00→23:19)
[2019-05-07] MEDS: Pantoprazole 40 MG Vial IVPUSH SCH (17:05)
[2019-05-07] MEDS: Acetaminophen 500 MG Tab PO SCH ×2 (18:08→23:19)
[2019-05-07] MEDS: ceFAZolin 2 GM in Premix Bag 1 BAG IV SCH (19:12)
[2019-05-07] MEDS: Celecoxib 200 MG Cap PO SCH (20:58)
[2019-05-08] MEDS: ceFAZolin 2 GM in Premix Bag 1 BAG IV SCH ×3 (03:29→18:13)
[2019-05-08] MEDS: Magnesium Sulfate/Water 2 GM in Premix Bag 1 BAG IV SCH ×4 (04:18→21:46)
[2019-05-08] MEDS: Acetaminophen 500 MG Tab PO SCH ×4 (05:40→23:37)
[2019-05-08] MEDS ORDERED: Dextrose 5%-Lactated Ringers 1,000 ML IV SCH (07:18)
[2019-05-08] MEDS: Levothyroxine 112 MCG Tab PO SCH (07:20)
[2019-05-08] MEDS: Celecoxib 200 MG Cap PO SCH ×2 (09:04→20:20)
[2019-05-08] MEDS: Mupirocin Oint 22 GM Tube TOP SCH (09:04)
[2019-05-08] MEDS: HYDROmorphone 2 MG Tab PO PRN ×4 (09:06→21:45)
--- NOTE | 2019-05-08 10:04 | PN ---
DATE OF SERVICE: 05/08/2019 SUBJECTIVE: Radha is postop day #1. Her pain has been well managed. She has been on a step 4 diet. Afebrile. Oral intake 900. Urine output via Hernández catheter is 1600. KEVIN drains 1 through 4 have put out 35, 25, 2, and 11 of a light pink serosanguineous drainage. REVIEW OF SYSTEMS: Remainder of review of systems negative for any pertinent positives and negatives. OBJECTIVE: GENERAL: Radha Rico is a pleasant 44-year-old female. VITAL SIGNS: TPR is 98.3, 64, 16, blood pressure 101/57. HEENT: Negative. NECK: Supple. HEART: Regular rate and rhythm. LUNGS: Clear. ABDOMEN: Dressings dry and intact. Abdominal binder is on and 4 KEVIN drains as noted above. EXTREMITIES: Without peripheral edema. ASSESSMENT: 1. Panniculectomy. 2. Repair of recurrent upper abdominal incisional hernia. 3. Repair of incarcerated primary incisional hernia with mesh for chronic panniculitis, recurrent incisional hernia upper abdomen and primary incarcerated incisional hernia lower abdomen. Date of surgery: 05/07/2019. Surgeon: Duong Kolb MD. PLAN: 1. Teach KEVIN drain care at home to strip, measure, record KEVIN drains 4 times a day. 2. Discontinue Hernández catheter. 3. Decrease IV D5LR to 100 mL per hour. 4. Discontinue SEGREGATOR and continuous pulse ox. 5. Dilaudid 2 mg 1 to 2 every 4 hours p.r.n. pain. 6. Good pulmonary toilet. 7. We will evaluate p.r.n. or in a.m. Suzie Davis PA-C /[id number]
[2019-05-08] MEDS: Pantoprazole 40 MG Vial IVPUSH SCH (16:10)
[2019-05-09] MEDS: HYDROmorphone 2 MG Tab PO PRN ×2 (03:07→08:45)
[2019-05-09] MEDS: Magnesium Sulfate/Water 2 GM in Premix Bag 1 BAG IV SCH (03:40)
[2019-05-09] MEDS: Acetaminophen 500 MG Tab PO SCH (06:23)
[2019-05-09 07:31] VITALS: BP 131/90; PULSE 63
[2019-05-09] MEDS: Levothyroxine 112 MCG Tab PO SCH (07:33)
[2019-05-09] MEDS: Celecoxib 200 MG Cap PO SCH (08:46)
[2019-05-09] MEDS: Mupirocin Oint 22 GM Tube TOP SCH (10:30)
--- NOTE | 2019-05-11 10:28 | DISCH ---
FINAL DIAGNOSES: 1. Chronic panniculitis. 2. Recurrent upper abdominal incisional hernia. 3. Incarcerated primary incisional hernia, lower abdomen. SECONDARY DIAGNOSES: 1. Bariatric surgery status. 2. Treated hypothyroidism. OPERATIVE PROCEDURES: Done on 05/07/2019: 1. Panniculectomy. 2. Open repair of incarcerated incisional hernia, upper abdomen. 3. Open repair of incarcerated primary incisional hernia of lower abdomen with mesh. SUMMARY: This is a 44-year-old presenting with chronic panniculitis and the patient also noted to have hernia in the upper abdominal area. On the day of admission, the patient underwent panniculectomy and repair of the recurrent hernia located in the upper abdomen. During the course of panniculectomy, she was noted also to have an incarcerated primary incisional hernia in the lower abdomen. This was repaired with augmentation with mesh. Postoperatively, the patient has done well. Panniculectomy site looks quite good. She will be sent home with [address], and initial followup will be with Suzie Davis at [facility] in [place] on 05/12/2019. It is probably early to get any of the mary out, perhaps one of the drains can be taken out at that time. Otherwise, she will be instructed to limit her lifting to less than 15 pounds until 06/06/2019. She will be allowed to return to work, however, on 05/18/2019, and her medications on discharge include her previous home medications plus Dilaudid 2 mg q.6 h. p.r.n. pain #25.
--- NOTE | 2019-05-18 07:28 | OR ---
DATE OF PROCEDURE: 05/07/2019 SURGEON: Duong Kolb MD PREOPERATIVE DIAGNOSES: 1. Chronic panniculitis. 2. Recurrent incisional hernia. POSTOPERATIVE DIAGNOSES: 1. Chronic panniculitis. 2. Recurrent incarcerated incisional hernia of upper abdomen. 3. Primary incarcerated hernia of lower abdomen. OPERATIVE PROCEDURES: 1. Panniculectomy (48568). 2. Repair of incarcerated recurrent incisional hernia involving upper abdomen (45177). 3. Repair of incarcerated primary incisional hernia of lower abdomen with mesh (01087, [id number]). ANESTHESIA: General. AIRPLANE ELECTRICIAN: Suzie Davis PA-C. INDICATIONS FOR PROCEDURE: This is a 44-year-old presenting with chronic panniculitis, as well as a recurrent incisional hernia above the area of mesh placement previously positioned across the central abdomen with a recurrence now being in the epigastric area. Plan is to proceed with a panniculectomy with repair of the hernia with or without mesh depending on operative findings. Potential risks of the procedure including bleeding, infection, and possible recurrence of the hernias were all reviewed, and the patient wishes to proceed. DETAILS OF PROCEDURE: The patient was taken to the operating room and placed in a supine position. After general endotracheal anesthesia was induced, a Hernández catheter was inserted, and the abdomen was prepped and draped. Initially, a transversely-oriented wide elliptical incision across the lower abdomen and extending onto the hips on both sides was made and carried down through the skin and subcutaneous tissue. The pannus was then reflected off the fascia from each side toward the midline. The patient was noted to have a previously undiagnosed hernia inferior to the previously placed mesh. This area was dissected out and it contained some incarcerated omentum and loops of small bowel, which were dissected free and placed back in the abdomen. This area was initially repaired with some polypropylene mesh fixed superiorly to the previously placed mesh with 0 Prolene stitch and then to the underside of the fascia with the same suture. This hernia was then repaired at the fascia level with transverse orientation using a #2 Vicryl stitch. Further dissection superiorly revealed the area of more clinically evident hernia to be at this point having intact mesh underneath it. However, the fascia had splayed apart, resulting in clinically evident hernia. The fascia over this was then closed with a vertically-oriented #2 Vicryl stitch layer. At that point, no further problems were noted. The abdomen was irrigated with antibiotic-containing saline solution. In the previous upper midline incision, there was some convexity of the abdominal wall, and this was treated with a small wedge in vertical orientation with removal of that area of the incision, which will allow a more adequate closure of the panniculectomy. The panniculectomy incision was then closed with 3-0 and 4-0 Vicryl stitch deep and mary for the skin. The patient was taken to the recovery room in satisfactory condition. Physician medical assistant prn, Suzie Davis, played an essential role in assisting in this case, helping to position the patient, retract structures as needed, as well as suturing and cutting sutures when indicated. Her presence improved patient safety and decreased the operative time. Duong Kolb MD /[id number]
== END 2019-05-09 11:00 | disposition home or self-care (01) | DRG 355 ==
LOC: JP.SDS 07:51 → JP.MS 13:50
PROVIDERS: ADMIT Surgery; ATTEND Surgery
PROC: 0WUF0JZ Supplement Abdominal Wall with Synthetic Substitute, Open Approach (ICD-10-PCS; principal; 2019-05-07)
PROC: 0JB80ZZ Excision of Abdomen Subcutaneous Tissue and Fascia, Open Approach (ICD-10-PCS; 2019-05-07)
DX: K43.0 Incisional hernia with obstruction, without gangrene (principal); M79.3 Panniculitis, unspecified; K21.9 Gastro-esophageal reflux disease without esophagitis; E53.8 Deficiency of other specified B group vitamins; E03.9 Hypothyroidism, unspecified; E50.9 Vitamin A deficiency, unspecified; Z79.899 Other long term (current) drug therapy; Z98.84 Bariatric surgery status; Z88.8 Allergy status to other drugs, medicaments and biological substances
CPT/HCPCS: 36415; 81025; 82728; 83735; 84100; 84443; 88302; 94762; A9270-GY; C9113; J0171; J0330; J0690; J1100; J1170; J2020; J2185; J2405; J2704; J2710; J2795; J3010; J3410; J3475; J3490; J7050; J7120; J7121